=== PATIENT | female | born 1990 | race Caucasian/White ===

== ENCOUNTER → 2021-03-16 09:41 | Outpatient (CLI) | payer OTHER, SELFPAY ==
[2021-03-16 12:04] LABS: HCG Quantitative /Beta subunit 10573 mIU/mL
== END ==
PROVIDERS: Referring Provider Family Medicine; Visit Provider Family Medicine
DX: Z34.01 Encounter for supervision of normal first pregnancy, first trimester (principal)
CPT/HCPCS: 36415; 84702

== ENCOUNTER → 2021-03-18 10:05 | Outpatient (CLI) | payer OTHER, SELFPAY ==
[2021-03-18 11:40] LABS: HCG Quantitative /Beta subunit 16750 mIU/mL
== END ==
PROVIDERS: Referring Provider Family Medicine; Visit Provider Family Medicine
DX: Z34.01 Encounter for supervision of normal first pregnancy, first trimester (principal)
CPT/HCPCS: 36415; 84702

== ENCOUNTER → 2021-03-23 10:08 | Outpatient (CLI) | payer OTHER, SELFPAY ==
[2021-03-23 12:01] LABS: HCG Quantitative /Beta subunit 46895 mIU/mL
== END ==
PROVIDERS: Referring Provider Family Medicine; Visit Provider Family Medicine
DX: Z34.90 Encounter for supervision of normal pregnancy, unspecified, unspecified trimester (principal)
CPT/HCPCS: 36415; 84702

== ENCOUNTER → 2021-04-08 09:51 | Outpatient (CLI) | payer OTHER, SELFPAY ==
[2021-04-08 10:21] LABS: Appearance Urine UA CLEAR; Bilirubin Urine UA NEGATIVE (NEGATIVE); Color Urine UA YELLOW; Glucose Urine UA NEGATIVE (Negative); Ketones Urine UA NEGATIVE (NEGATIVE); Leukocyte Esterase Urine UA TRACE (NEGATIVE); Nitrite Urine UA NEGATIVE (Negative); Occult Blood Urine UA NEGATIVE (Negative); Protein Urine UA NEGATIVE (Negative); Urobilinogen Urine UA 0.2 E.U./dL (0.2)
[2021-04-08 10:22] LABS: Add Manual Diff / Slide Review NO; Basophils Absolute Auto 0 /uL (0-100); Basophils Percent Auto 0.4 % (0-2); Eosinophils Absolute Auto 0 /uL (0-450); Eosinophils Percent Auto 0.4 % (2-4); Hematocrit 37.2 % (36-46); Hemoglobin 13.1 g/dL (12.0-16.0); Lymphocytes Absolute Auto 1200 /uL (1100-4500); Lymphocytes Percent Auto 15.9 % (25-40); Mean Corpuscular HGB Conc 35.1 % (30-36); Mean Corpuscular Hemoglobin 31.2 PG (26-34); Mean Corpuscular Volume 88.8 fL (80-100); Monocytes Absolute Auto 300 /uL (0-900); Monocytes Percent Auto 4.4 % (3-14); Neutrophils Absolute Auto 6100 /uL (1500-7000); Neutrophils Percent Auto 78.9 % (50-75); Platelet Count 230 X10^3/uL (150-400); Red Blood Cell Count 4.19 X10^6/uL (4.0-5.2); Red Cell Distribution Width 12.2 % (11.6-14.8); White Blood Cell Count 7.7 X10^3/uL (4.5-11.0); pH Urine UA 7.5 (4.5-8.0)
[2021-04-08 10:23] LABS: Bacteria Urine None Seen; RBC Urine None Seen (0-5/HPF); WBC Urine None Seen (0-5/HPF)
[2021-04-08 10:26] LABS: Culture Indicated Urine Cult Not Indicated; Urine Comments Microscopic Normal
[2021-04-09 05:37] LABS: RPR Screen Non Reactive (Non Reactive)
[2021-04-09 10:08] LABS: Varicella IgG Antibody 2029 index (Immune >165)
[2021-04-09 20:57] LABS: Hepatitis B Surface Antigen NEGATIVE s/c (NEGATIVE); Rubella Antibody IgG 24.5 IU/mL (>15)
[2021-04-09 21:13] LABS: HIV 1 & 2 Ab/Ag 4th Gen Combo NEGATIVE (NEGATIVE); Hep C Virus Ab w/Reflex Quant NEGATIVE s/c (NEGATIVE)
== END ==
PROVIDERS: PCP Family Medicine; Referring Provider Family Medicine; Visit Provider Family Medicine
DX: Z34.01 Encounter for supervision of normal first pregnancy, first trimester (principal)
CPT/HCPCS: 36415; 80055; 81003; 81015; 86787; 86803; 86850; 86900; 86901; 87077; 87086; 87389

== ENCOUNTER 2022-09-12 12:21 | Emergency (ER) | payer OTHER, SELFPAY ==
[2022-09-12 12:37] VITALS: BP 106/55; PULSE 65; RESP 16; TEMP 36.5; O2SAT 100; BMI 28.1
[2022-09-12 13:47] LABS: Amorphous Sediment Urine 1+; Bacteria Urine Many (>30); Culture Indicated Urine Specimen Cultured; Mucus Urine 1+ (Negative); RBC Urine 1-5/HPF (0-5/HPF); Squamous Epithelial Cell Urine 5-10 /HPF (0-5/HPF); WBC Urine 30-100/HPF (0-5/HPF)
--- NOTE | 2022-09-12 13:51 | ED_ITS ---
HPI - Female Genitourinary <Jerrica Reeves PA-C - Last Filed: 09/12/22 15:37> General Chief complaint: Urogenital-Female Stated complaint: Possible UTI, 7 Wks Time Seen by Provider: 09/12/22 13:37 Mode of arrival: Ambulatory History of Present Illness HPI Narrative: The patient is very pleasant 31 years old female, busy mother of 10 month old toddler, is now 8 weeks ( last MP was in mid July) She noted urinary urgency, frequency and some burnng X 2 days concerned about UTI no flank pain No blood in Urine No fever, n/v/d. Takes MVI Overall describes herself as healthy. Related Data Home Medications Medication Instructions Recorded Confirmed loratadine 10 mg tablet (Claritin) 10 mg PO .PRN 04/01/21 04/08/21 prenat.vits,bradley,iga-xvfu-axivz 1 tab PO DAILY 04/01/21 04/08/21 Previous Rx's Medication Instructions Recorded Lactobacillus rhamnosus GG 10 1 cap PO DAILY #30 caps 09/12/22 billion cell-inulin 200 mg capsule ([employer]) cephalexin 500 mg capsule 500 mg PO TID #21 caps 09/12/22 Allergies Allergy/AdvReac Type Severity Reaction Status Date / Time cat dander Allergy Intermediate Itchy Verified 09/12/22 13:55 throat, runny nose Review of Systems <Jerrica Reeves PA-C - Last Filed: 09/12/22 15:37> Review of Systems Narrative: Pertinent review of systems is otherwise normal unless stated in HPI Patient History <Jerrica Reeves PA-C - Last Filed: 09/12/22 15:37> Medical History Allergic rhinitis Chlamydia (~2018) Surgical History History of root canal procedure (~2020) S/P arthroscopic surgery of right knee (~2007) [place] teeth extracted (~2010) Family History Father Healthy adult Mother Twin , mate liveborn Hyperlipidemia Grandfather Diabetes mellitus Hypertension Myocardial infarction Heart disease H/O heart bypass surgery Grandmother Cancer Lung cancer Smoker Grandfather Healthy adult Grandmother Dementia Family/Other Twin , mate liveborn Sister H/O premature delivery Exam <Jerrica Reeves PA-C - Last Filed: 09/12/22 15:37> Narrative Exam Narrative: GENERAL: 31 year old patient appears stated age. Well-developed patient, in no acute distress. HEAD: Atraumatic. Normocephalic. EYES: Pupils equal round and reactive. Extraocular motions intact. No scleral icterus. No injection or drainage. ENT: Nose without bleeding, purulent drainage. Throat without erythema, tonsillar hypertrophy or exudate. Airway patent. NECK: Trachea midline. Non tender CARDIOVASCULAR: Regular rate and rhythm without murmurs, gallops, or rubs. RESPIRATORY: Clear to auscultation. Breath sounds equal bilaterally. No wheezes, rales, or rhonchi. GASTROINTESTINAL: Abdomen soft, non-tender, nondistended. Genuto urinary : pelvic pressure elicits urge to urnate UA reviewed positive for Leucocytes EXTREMITIES: No edema or joint tenderness. BACK: Nontender without deformity or crepitance. No flank tenderness. NEURO: AOx3. SKIN: No rash or erythema of visible areas Initial Vital Signs Initial Vital Signs: Vital Signs Temperature 97.7 F 09/12/22 12:37 Pulse Rate 65 09/12/22 12:37 Respiratory Rate 16 09/12/22 12:37 Blood Pressure 106/55 L 09/12/22 12:37 Pulse Oximetry 100 09/12/22 12:37 Oxygen Delivery Method 09/12/22 12:37 <Tammy Gomez MD - Last Filed: 09/12/22 18:47> Initial Vital Signs Initial Vital Signs: Vital Signs Temperature 97.7 F 09/12/22 12:37 Pulse Rate 65 09/12/22 12:37 Respiratory Rate 16 09/12/22 12:37 Blood Pressure 106/55 L 09/12/22 12:37 Pulse Oximetry 100 09/12/22 12:37 Oxygen Delivery Method 09/12/22 12:37 Course <Jerrica Reeves PA-C - Last Filed: 09/12/22 15:37> Orders Ordered: ED Orders 09/12/22 13:30 Urine Culture Stat Urine Microscopic Stat 09/12/22 14:05 CBC Auto Diff [Complete Blood Count AUTO DIFF] Stat CMP [Comprehensive Metabolic Panel] Stat Vital Signs Vital signs: Vital Signs - 8 hr 09/12/22 12:37 09/12/22 14:22 Temperature 97.7 F Pulse Rate 65 78 Respiratory Rate 16 16 Blood Pressure 106/55 L 99/58 L Pulse Oximetry 100 98 Oxygen Delivery Method Room Air Room Air <Tammy Gomez MD - Last Filed: 09/12/22 18:47> Orders Ordered: ED Orders 09/12/22 13:30 Urine Culture Stat Urine Microscopic Stat 09/12/22 14:05 CBC Auto Diff [Complete Blood Count AUTO DIFF] Stat CMP [Comprehensive Metabolic Panel] Stat Vital Signs Vital signs: Vital Signs - 8 hr 09/12/22 12:37 09/12/22 14:22 Temperature 97.7 F Pulse Rate 65 78 Respiratory Rate 16 16 Blood Pressure 106/55 L 99/58 L Pulse Oximetry 100 98 Oxygen Delivery Method Room Air Room Air MDM - Female Genitourinary <Jerrica Reeves PA-C - Last Filed: 09/12/22 15:37> Lab Data Result diagrams: 09/12/22 14:05 09/12/22 14:05 Labs: Lab Results 09/12/22 09/12/22 09/12/22 Range/Units 13:30 14:05 14:05 WBC 10.2 (4.5-11.0) X10^3/uL RBC 4.25 (4.0-5.2) X10^6/uL Hgb 12.9 (12.0-16.0) g/dL Hct 37.1 (36-46) % MCV 87.2 (80-100) fL MCH 30.2 (26-34) PG MCHC 34.7 (30-36) % RDW 12.7 (11.6-14.8) % Plt Count 220 (150-400) X10^3/uL Neut % (Auto) 80.0 H (50-75) % Lymph % (Auto) 12.7 L (25-40) % [place] % (Auto) 5.6 (3-14) % Eos % (Auto) 1.2 L (2-4) % Baso % (Auto) 0.5 (0-2) % Neut # (Auto) 8200 H (8224-5461) /uL Lymph # (Auto) 1300 (9675-2983) /uL [place] # (Auto) 600 (0-900) /uL Eos # (Auto) 100 (0-450) /uL Baso # (Auto) 0 (0-100) /uL Sodium 135 L (137-145) mmol/L Potassium 3.8 (3.4-5.1) mmol/L Chloride 107 (98-107) mmol/L Carbon Dioxide 23 (22-32) mmol/L BUN 11 (7-17) mg/dL Creatinine 0.67 (0.52-1.04) mg/dL Estimated GFR > 60 (>60) mL/min BUN/Creatinine Ratio 16.4 (6-22) Glucose 84 (70-100) mg/dL Calcium 8.6 (8.4-10.2) mg/dL Total Bilirubin 0.2 (0.2-1.3) mg/dL AST 16 (14-36) IU/L ALT 12 (<35) IU/L Alkaline Phosphatase 39 (38-126) U/L Total Protein 6.7 (6.3-8.2) g/dL Albumin 3.9 (3.5-5.0) g/dL Globulin 2.8 (1.7-4.1) g/dL Albumin/Globulin Ratio 1.4 (1.0-2.8) Urine RBC 1-5/hpf (0-5/HPF) Urine WBC 30-100/hpf H (0-5/HPF) Ur Squamous Epith Cells 5-10 /hpf H (0-5/HPF) Amorphous Sediment 1+ Urine Bacteria Many (>30) H (None) Urine Mucus 1+ H (Negative) Ur Culture Indicated? Specimen cultured Point of Care Testing Test Results Positive Urine Dip Bedside Urine Glucose Negative Bedside Urine Bilirubin - Negative Bedside Urine Ketone - Negative Urine Specific [place] 1.005 Bedside Urine Occult Blood + Bedside Urine pH 6.0 Bedside Urine Protein - Negative Bedside Urine Urobilinogen - Negative Bedside Urine Nitrite - Negative Bedside Urine Leukocytes + 70 Esterase MDM Narrative Medical decision making narrative: Patient was tested positive for UTI, as well as has confirming sinus symptoms. Multiple etiologies for patient's symptoms considered including: . treatment discussed as well, abx course with keflex She also advised to take probiotics to avoid yeast infection following abx use Patient's symptoms improved over duration of stay . Findings and discharge diagnosis discussed with patient followed by verbalization of understanding Return precautions discussed with patient/family whom verbalize understanding. <Tammy Gomez MD - Last Filed: 09/12/22 18:47> Lab Data Labs: Lab Results 09/12/22 09/12/22 09/12/22 Range/Units 13:30 14:05 14:05 WBC 10.2 (4.5-11.0) X10^3/uL RBC 4.25 (4.0-5.2) X10^6/uL Hgb 12.9 (12.0-16.0) g/dL Hct 37.1 (36-46) % MCV 87.2 (80-100) fL MCH 30.2 (26-34) PG MCHC 34.7 (30-36) % RDW 12.7 (11.6-14.8) % Plt Count 220 (150-400) X10^3/uL Neut % (Auto) 80.0 H (50-75) % Lymph % (Auto) 12.7 L (25-40) % [place] % (Auto) 5.6 (3-14) % Eos % (Auto) 1.2 L (2-4) % Baso % (Auto) 0.5 (0-2) % Neut # (Auto) 8200 H (0964-9599) /uL Lymph # (Auto) 1300 (8958-4441) /uL [place] # (Auto) 600 (0-900) /uL Eos # (Auto) 100 (0-450) /uL Baso # (Auto) 0 (0-100) /uL Sodium 135 L (137-145) mmol/L Potassium 3.8 (3.4-5.1) mmol/L Chloride 107 (98-107) mmol/L Carbon Dioxide 23 (22-32) mmol/L BUN 11 (7-17) mg/dL Creatinine 0.67 (0.52-1.04) mg/dL Estimated GFR > 60 (>60) mL/min BUN/Creatinine Ratio 16.4 (6-22) Glucose 84 (70-100) mg/dL Calcium 8.6 (8.4-10.2) mg/dL Total Bilirubin 0.2 (0.2-1.3) mg/dL AST 16 (14-36) IU/L ALT 12 (<35) IU/L Alkaline Phosphatase 39 (38-126) U/L Total Protein 6.7 (6.3-8.2) g/dL Albumin 3.9 (3.5-5.0) g/dL Globulin 2.8 (1.7-4.1) g/dL Albumin/Globulin Ratio 1.4 (1.0-2.8) Urine RBC 1-5/hpf (0-5/HPF) Urine WBC 30-100/hpf H (0-5/HPF) Ur Squamous Epith Cells 5-10 /hpf H (0-5/HPF) Amorphous Sediment 1+ Urine Bacteria Many (>30) H (None) Urine Mucus 1+ H (Negative) Ur Culture Indicated? Specimen cultured Point of Care Testing Test Results Positive Urine Dip Bedside Urine Glucose Negative Bedside Urine Bilirubin - Negative Bedside Urine Ketone - Negative Urine Specific [place] 1.005 Bedside Urine Occult Blood + Bedside Urine pH 6.0 Bedside Urine Protein - Negative Bedside Urine Urobilinogen - Negative Bedside Urine Nitrite - Negative Bedside Urine Leukocytes + 70 Esterase Discharge Plan Departure Patient Disposition: Home Clinical Impression: Urinary tract infection, Instructions: DI for Urinary Tract Infection (UTI) Activity Restrictions/Additional Instructions: Mrs Burrell is diagnosed with UTI . Diagnosis and treatment explained to pt, she has her questions answered to her apparent satisfaction and patient was instructed to return to the emergency department for any worsening, persistent, or worrisome problems. She is instructed to take medications as directed. The patient instructed to contact her [facility] office in the morning to schedule an appointment in the next 1-2 days. Prescriptions: New cephalexin 500 mg capsule 500 mg PO TID Qty: 21 0RF [employer] [facility] 10 billion cell -200 mg capsule 1 cap PO DAILY Qty: 30 2RF No Action loratadine [Claritin] 10 mg tablet 10 mg PO .PRN prenat.vits,bradley,[id number]-[id number] Tablet 1 tab PO DAILY Referrals: Conor Young MD [Primary Care Provider] - Visit Report Forms: Patient Portal/API <Tammy Gomez MD - Last Filed: 09/12/22 18:47> Cosign ED Attending Cosignature Attestation: I was immediately available in the department for consultation throughout this patient's visit. I agree with documentation as above. Tammy Gomez MD
[2022-09-12 14:10] LABS: Add Manual Diff / Slide Review NO; Basophils Absolute Auto 0 /uL (0-100); Basophils Percent Auto 0.5 % (0-2); Eosinophils Absolute Auto 100 /uL (0-450); Eosinophils Percent Auto 1.2 % (2-4); Hematocrit 37.1 % (36-46); Hemoglobin 12.9 g/dL (12.0-16.0); Lymphocytes Absolute Auto 1300 /uL (1100-4500); Lymphocytes Percent Auto 12.7 % (25-40); Mean Corpuscular HGB Conc 34.7 % (30-36); Mean Corpuscular Hemoglobin 30.2 PG (26-34); Mean Corpuscular Volume 87.2 fL (80-100); Monocytes Absolute Auto 600 /uL (0-900); Monocytes Percent Auto 5.6 % (3-14); Neutrophils Absolute Auto 8200 /uL (1500-7000); Platelet Count 220 X10^3/uL (150-400); Red Blood Cell Count 4.25 X10^6/uL (4.0-5.2); Red Cell Distribution Width 12.7 % (11.6-14.8); White Blood Cell Count 10.2 X10^3/uL (4.5-11.0)
[2022-09-12 14:21] LABS: HEMOLYSIS < 15 (0-50); Sodium 135 mmol/L (137-145)
[2022-09-12 14:22] VITALS: BP 99/58; PULSE 78; RESP 16; O2SAT 98
[2022-09-12 14:22] LABS: Alanine Aminotransferase 12 IU/L (<35); Albumin 3.9 g/dL (3.5-5.0); Albumin Globulin Ratio 1.4 (1.0-2.8); Alkaline Phosphatase 39 U/L (38-126); Aspartate Aminotransferase 16 IU/L (14-36); BUN Creatinine Ratio 16.4 (6-22); Bilirubin Total 0.2 mg/dL (0.2-1.3); Blood Urea Nitrogen 11 mg/dL (7-17); Calcium 8.6 mg/dL (8.4-10.2); Carbon Dioxide 23 mmol/L (22-32); Chloride 107 mmol/L (98-107); Estimated Glomerular Filt Rate > 60 mL/min (>60); Globulin 2.8 g/dL (1.7-4.1); Glucose 84 mg/dL (70-100); Potassium 3.8 mmol/L (3.4-5.1); Total Protein 6.7 g/dL (6.3-8.2)
== END 2022-09-12 14:23 | disposition home or self-care (01) ==
PROVIDERS: Emergency Medicine; Emergency Provider Physician Assistant Medical; PCP Family Medicine
DX: O23.41 Unspecified infection of urinary tract in pregnancy, first trimester (principal); N39.0 Urinary tract infection, site not specified; Z3A.08 8 weeks gestation of pregnancy
CPT/HCPCS: 36415; 80053; 81003; 81015; 81025; 85025; 87086; 99283

== ENCOUNTER → 2022-10-20 15:34 | Outpatient (CLI) | payer OTHER, SELFPAY ==
[2022-10-20 16:42] LABS: Add Manual Diff / Slide Review NO; Basophils Absolute Auto 0 /uL (0-100); Basophils Percent Auto 0.3 % (0-2); Eosinophils Absolute Auto 100 /uL (0-450); Eosinophils Percent Auto 1.5 % (2-4); Hematocrit 35.1 % (36-46); Hemoglobin 12.5 g/dL (12.0-16.0); Lymphocytes Absolute Auto 1300 /uL (1100-4500); Lymphocytes Percent Auto 15.1 % (25-40); Mean Corpuscular HGB Conc 35.6 % (30-36); Mean Corpuscular Volume 87.1 fL (80-100); Monocytes Absolute Auto 400 /uL (0-900); Monocytes Percent Auto 4.5 % (3-14); Neutrophils Absolute Auto 6600 /uL (1500-7000); Neutrophils Percent Auto 78.6 % (50-75); Platelet Count 244 X10^3/uL (150-400); Red Blood Cell Count 4.03 X10^6/uL (4.0-5.2); White Blood Cell Count 8.4 X10^3/uL (4.5-11.0)
[2022-10-21 17:33] LABS: Hepatitis B Surface Antigen NEGATIVE s/c (NEGATIVE); Rubella Antibody IgG 19.1 IU/mL (>15)
[2022-10-21 17:39] LABS: HIV 1 & 2 Ab/Ag 4th Gen Combo NEGATIVE (NEGATIVE); Hep C Virus Ab w/Reflex Quant NEGATIVE s/c (NEGATIVE)
[2022-10-22 10:03] LABS: Varicella IgG Antibody 1469 index (Immune >165)
[2022-10-22 11:09] LABS: RPR Screen Non Reactive (Non Reactive)
== END ==
PROVIDERS: PCP Family Medicine; Referring Provider Obstetrics & Gynecology; Visit Provider Obstetrics & Gynecology
DX: Z34.81 Encounter for supervision of other normal pregnancy, first trimester (principal)
CPT/HCPCS: 36415; 80055; 86787; 86803; 86850; 86900; 86901; 87389

== ENCOUNTER → 2022-11-16 17:33 | Outpatient (CLI) | payer OTHER, SELFPAY ==
[2022-11-16 22:01] LABS: Urine N gonorrhoeae NOT DETECTED
[2022-11-16 22:07] LABS: Urine Chlamydia NOT DETECTED
== END ==
PROVIDERS: PCP Family Medicine; Visit Provider Obstetrics & Gynecology
DX: Z11.3 Encounter for screening for infections with a predominantly sexual mode of transmission (principal); Z34.82 Encounter for supervision of other normal pregnancy, second trimester; Z3A.16 16 weeks gestation of pregnancy
CPT/HCPCS: 87491; 87591

== ENCOUNTER → 2022-12-14 15:15 | Outpatient (CLI) | payer OTHER, SELFPAY ==
--- NOTE | 2022-12-14 15:16 | DI.US.S_ITS ---
PROCEDURE: US OB >= 14 WEEKS FETUS INDICATIONS: ANATOMY OUTSIDE/PRIOR DATING DATA: Last menstrual period (LMP): 07/24/2022. LMP-based estimated date of delivery (CARMEN): 04/30/2023. First dating scan (date and location): 09/30/2022. Estimated date of delivery (CARMEN) from first dating scan: 05/04/2023 The calculations are made using the working CARMEN of 04/30/2023. TECHNIQUE: Real-time scanning was performed of the fetus, with image documentation and biometric measurements. Endovaginal scannin dictated COMPARISON: None. FINDINGS: General: A single living intrauterine gestation is present. Presentation: Variable Placenta: Placental position is posterior fundal, without previa. Amniotic fluid index: 18.2 cm, normal range is 5-24 cm. Single deepest vertical pocket is 6.3 cm. heart rate: 141 beats per minute. Maternal cervical canal: 5.9 cm long. Normal lower limit is 2.5 cm. biometrics: Biparietal diameter: 4.5 cm, 19 weeks, 5 days. Head circumference: 16.7 cm, 19 weeks, 3 days. 7% Abdominal circumference: 15.9 cm, 21 weeks, 0 day. Femur length: 3.3 cm, 20 weeks, 2 days. Clinically estimated gestational age: 20 weeks, 3 days. Composite gestational age from present scan: 20 weeks, 1 day. Estimated weight and percentile: 358 g, 49%. Anatomic survey: Neuro: Ventricles are non-dilated at less than 10 mm. Cisterna magna is normal at 3-11 mm. Cerebellum is normal in size and morphology. Nuchal skin fold: Normal at less than 6 mm between 14-21 weeks gestational age. Face: Nose and lips, facial profile are normal. Spine: No evidence for spina bifida. Heart: 4-chambered heart is present, with normal ventricular outflow tracts. Diaphragm: Diaphragm is intact. Stomach: Left-sided stomach is present. Kidneys: No hydronephrosis. Normal is less than 5 mm in 2nd trimester, less than 7 mm in 3rd trimester. Cord: 3-vessel cord is seen. There is probable superior edge marginal placental cord insertion approximately 0.8 cm from placental edge. Bladder: Normal in size. Extremities: All 4 extremities identified. IMPRESSION: 1. Single live intrauterine gestation with fetus in variable presentation. heart rate is 141 beats per minute. Normal amount of amniotic fluid. Overall normal growth with estimated weight at 49%. S occur inference measurement is at 7th percentile. 2. Marginal placental cord insertion as above. Rest of the anatomic survey is normal. We strive to produce accurate, complete, and clear reports of imaging services. To assist us in improving patient care, this report was composed using standard report templates and voice recognition software. Therefore, it may contain abnormal punctuation, insertions and/or omissions. Occasional wrong-word or sound-alike substitutions may occur. Though we review the report and make efforts to correct it, we do recommend that the report be read carefully in proper context to recognize any text inaccuracies. Dictated by: Danny Carson M.D. on 12/15/2022 at 8:45 Approved by: Danny Carson M.D. on 12/15/2022 at 8:48
== END ==
PROVIDERS: PCP Family Medicine; Referring Provider Obstetrics & Gynecology; Visit Provider Obstetrics & Gynecology
DX: Z34.82 Encounter for supervision of other normal pregnancy, second trimester (principal); Z3A.20 20 weeks gestation of pregnancy
CPT/HCPCS: 76811

== ENCOUNTER → 2023-01-28 11:58 | Outpatient (CLI) | payer OTHER, SELFPAY ==
[2023-01-28 14:49] LABS: Hematocrit 34.1 % (36-46); Hemoglobin 11.9 g/dL (12.0-16.0)
[2023-01-28 15:27] LABS: GTT (PREG) 1 Hour PP 50gm Dose 76 mg/dL (76-139)
== END ==
PROVIDERS: PCP Family Medicine; Referring Provider Obstetrics & Gynecology; Visit Provider Obstetrics & Gynecology
DX: Z34.82 Encounter for supervision of other normal pregnancy, second trimester (principal); Z3A.26 26 weeks gestation of pregnancy
CPT/HCPCS: 36415; 82950; 85014; 85018

== ENCOUNTER → 2023-04-15 15:43 | Outpatient (CLI) | payer OTHER, SELFPAY ==
[2023-04-16 14:58] LABS: Strep Grp B PCR NEG for Grp B Strep
== END ==
PROVIDERS: PCP Family Medicine; Visit Provider Obstetrics & Gynecology
DX: Z34.83 Encounter for supervision of other normal pregnancy, third trimester (principal); Z3A.37 37 weeks gestation of pregnancy
CPT/HCPCS: 87653

== ENCOUNTER 2023-05-06 13:50 | Outpatient (CLI) | payer OTHER, SELFPAY | END 2023-05-06 14:40 | disposition home or self-care (01) | LOC: LABOR 14:07 → OB 05-12 14:54 | PROVIDERS: PCP Family Medicine; Referring Provider Obstetrics & Gynecology; Visit Provider Obstetrics & Gynecology | DX: O48.0 Post-term pregnancy (principal); Z3A.40 40 weeks gestation of pregnancy | CPT/HCPCS: 59025; G0378; G0379 ==

== ENCOUNTER 2023-05-11 19:53 | Outpatient (CLI) | payer OTHER, SELFPAY ==
--- NOTE | 2023-05-11 20:46 | P.TNLD_ITS ---
Visit Information Visit Information Date of evaluation: 05/11/23 Primary OB Provider: Michele Fong On-call OB Provider: Magali Salazar Reason for Evaluation: Yes non-stress test Comments/Additional reasons for admission: post dates Vital Signs Vital Signs: BP102/65 T 36.3 [facility] Medical History (Updated 05/11/23 @ 20:48 by Magali Salazar MD) Allergic rhinitis Chlamydia (~2018) Surgical History History of root canal procedure (~2020) S/P arthroscopic surgery of right knee (~2007) [place] teeth extracted (~2010) Family History (Updated 09/27/22 @ 09:45 by Yanna Guerrier RN) Father Healthy adult Mother Twin , mate liveborn Hyperlipidemia Grandfather Diabetes mellitus Hypertension Myocardial infarction Heart disease H/O heart bypass surgery Grandmother Cancer Lung cancer Smoker Grandfather Prostate cancer Grandmother Dementia Family/Other Twin , mate liveborn Sister Premature Social History (System 09/10/22 @ 09:50 by Sharmila Fox) marital status: number of children: 1 household members: spouse lives independently: Yes caregiver/support person: Yes housing: house pets and animals: No education level: master's degree ([employer] Master's : online full- time [employer]) 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, 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[employer]) current occupational exposures/hazards: No wing/tenriism: [employer] special wing needs: No travel history: recent (Domestic only) seatbelt use: always helmet use: Yes water heater temp set < 120 deg: Yes working smoke detector in home: Yes fire extinguisher in home: Yes carbon monox detector in home: Yes firearms in home: Yes do you feel safe at home: Yes Smoking Status: Never smoker second hand exposure: No alcohol intake: former (2-3/week when not ) substance use type: does not use during the past year weight has: other (Gave 10 months ago) well-balanced diet: daily or most days daily servings fruits/ve or more times/day caffeine: Yes (Decaf while , usually 1 cup coffee/day when not ) Type(s) of exercise: walking frequency: daily Evaluation Evaluation Baseline heart rate: 120 Variability: Moderate (11-25) monitor accelerations: Present Monitor Decelerations: Absent Contraction Frequency (minutes): 10 Uterine Contraction Intensity: Mild Category of Tracing: Reactive Status: Category l Diagnosis, Plan/Disposition Final Diagnosis (1) 41 weeks gestation of : Status: Acute Plan/Disposition Plan: Patient was brought in for induction for postdates however due to staffing decision was made to send patient home after reactive NST to return in a.m. for induction. OB Disposition: home
== END 2023-05-11 20:55 | disposition home or self-care (01) ==
LOC: OB 05-12 14:47
PROVIDERS: PCP Family Medicine; Referring Provider Obstetrics & Gynecology; Visit Provider Obstetrics & Gynecology
DX: O48.0 Post-term pregnancy (principal); Z3A.41 41 weeks gestation of pregnancy
CPT/HCPCS: 59025; G0378; G0379

== ENCOUNTER 2023-05-12 06:22 | Inpatient (IN) | payer OTHER, SELFPAY ==
[2023-05-12 06:54] VITALS: BP 102/65
[2023-05-12 07:16] LABS: Add Manual Diff / Slide Review NO; Basophils Absolute Auto 0 /uL (0-100); Basophils Percent Auto 0.5 % (0-2); Eosinophils Absolute Auto 100 /uL (0-450); Eosinophils Percent Auto 0.7 % (2-4); Hematocrit 31.5 % (36-46); Hemoglobin 11.1 g/dL (12.0-16.0); Lymphocytes Absolute Auto 1000 /uL (1100-4500); Lymphocytes Percent Auto 11.2 % (25-40); Mean Corpuscular HGB Conc 35.3 % (30-36); Mean Corpuscular Hemoglobin 30.6 PG (26-34); Mean Corpuscular Volume 86.9 fL (80-100); Monocytes Absolute Auto 500 /uL (0-900); Monocytes Percent Auto 6.3 % (3-14); Neutrophils Absolute Auto 7000 /uL (1500-7000); Neutrophils Percent Auto 81.3 % (50-75); Platelet Count 220 X10^3/uL (150-400); Red Blood Cell Count 3.62 X10^6/uL (4.0-5.2); Red Cell Distribution Width 13.3 % (11.6-14.8); White Blood Cell Count 8.6 X10^3/uL (4.5-11.0)
--- NOTE | 2023-05-12 07:52 | P.HPOB_ITS ---
OB HPI Date/Time Date of admission: 05/12/23 Date Patient Seen: 05/12/23 Time Patient Seen: 07:53 History of Present Condition Chief complaint: IUP, 41+4 wks EGA, GBS neg, Hx of precip delivery : 2 Para: 1 Estimated Gestational Age (weeks): 41+5 Narrative: Kelsy Burrell is a 32 year old admitted now at 41+5 wks EGA due to pos t-datism. Patient's course has been unremarkable with solid early dating and appropriate milestones throughout. Patient declined cell free DNA testing as well as AFP testing and does not want to know the gender until the baby is born. GBS is negative. Indications Indication for induction OB: post dates History of Present care: good care Dating criteria: LMP confirmed by 1st trimester US Ultrasounds: normal 1st trimester US and normal mid trimester US Obstetrical complications: none Medical complications: none Preadmission Labs Blood type: B (+) positive -: Antibody screen: negative, GBS status: negative, HBsAG: negative, HIV: negative and RPR/VDLR: negative -: Chlamydia screen: not detected and Gonorrhea screen: not detected -: Rubella: immune and Varicella: immune HCT: 31.5 HCAB: negative PAP: Normal Cell-free DNA: Declined Evaluation Evaluation Baseline heart rate: 120 Variability: Moderate (11-25) monitor accelerations: Present Monitor Decelerations: Absent Contraction Frequency (minutes): 4 Uterine Contraction Intensity: Moderate Category of Tracing: Reactive Status: Category l Dilation (cm): 0 Effacement (%): 50 Dilation: Closed Effacement: >/=80% station: -2 Position of cervix: posterior Consistency: firm Rasmussen score: 4 [facility] Medical History (Updated 05/11/23 @ 20:48 by Magali Salazar MD) Allergic rhinitis Chlamydia (~2018) Surgical History History of root canal procedure (~2020) S/P arthroscopic surgery of right knee (~2007) [place] teeth extracted (~2010) Family History (Updated 09/27/22 @ 09:45 by Yanna Guerrier RN) Father Healthy adult Mother Twin , mate liveborn Hyperlipidemia Grandfather Diabetes mellitus Hypertension Myocardial infarction Heart disease H/O heart bypass surgery Grandmother Cancer Lung cancer Smoker Grandfather Prostate cancer Grandmother Dementia Family/Other Twin , mate liveborn Sister Premature Social History (System 09/10/22 @ 09:50 by Sharmila Fox) marital status: number of children: 1 household members: spouse lives independently: Yes caregiver/support person: Yes housing: house pets and animals: No education level: master's degree ([employer] Master's : online full- time [employer]) 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, 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[employer]) current occupational exposures/hazards: No wing/uatsdin: [employer] special wing needs: No travel history: recent (Domestic only) seatbelt use: always helmet use: Yes water heater temp set < 120 deg: Yes working smoke detector in home: Yes fire extinguisher in home: Yes carbon monox detector in home: Yes firearms in home: Yes do you feel safe at home: Yes Smoking Status: Never smoker second hand exposure: No alcohol intake: former (2-3/week when not ) substance use type: does not use during the past year weight has: other (Gave 10 months ago) well-balanced diet: daily or most days daily servings fruits/ve or more times/day caffeine: Yes (Decaf while , usually 1 cup coffee/day when not ) Type(s) of exercise: walking frequency: daily Meds Home Medications and Allergies Home Medications Medication Instructions Recorded Confirmed Type loratadine 10 mg tablet (Claritin) 10 mg PO .PRN 04/01/21 05/12/23 History prenat.vits,bradley,zra-iift-wysnj 1 tab PO DAILY 04/01/21 05/12/23 History Allergies Allergy/AdvReac Type Severity Reaction Status Date / Time cat dander Allergy Intermediate Itchy Verified 05/06/23 14:54 throat, runny nose Review of Systems Review of Systems Narrative: Problem-specific ROS positives included in HPI OB Exam Vital signs Blood Pressure: 103/60 Pulse Rate: 83 Respiratory Rate: 16 Temperature: 96.4 F HENMT Head: normal to inspection, normocephalic and atraumatic Eyes General: appearance normal, both eyes and all related structures Resp Effort & Inspection: normal respiratory effort and able to speak in complete sentences Auscultation: clear to auscultation bilaterally Cardio Rate: regular rate Rhythm: regular rhythm Heart Sounds: S1 normal, S2 normal and no murmurs Extremities Lower extremity: Yes normal to inspection GI Inspection: normal to inspection Palpation: Yes soft and Yes no hepatosplenomegaly Uterus Location (Fundal Height): 38 Estimated Weight (lbs): 8 Objective Labs 05/12/23 07:00 Labs: Laboratory Results - last 24 hr 05/12/23 07:00 WBC 8.6 RBC 3.62 L Hgb 11.1 L Hct 31.5 L MCV 86.9 MCH 30.6 MCHC 35.3 RDW 13.3 Plt Count 220 Neut % (Auto) 81.3 H Lymph % (Auto) 11.2 L [place] % (Auto) 6.3 Eos % (Auto) 0.7 L Baso % (Auto) 0.5 Neut # (Auto) 7000 Lymph # (Auto) 1000 L [place] # (Auto) 500 Eos # (Auto) 100 Baso # (Auto) 0 Assessment and Plan Assessment and Plan Assessment and Plan narrative: ASSESSMENT 1. Intrauterine , 40 1+5 weeks gestational age 2. GBS negative status PLAN 1. Admit for ripening and induction due to post dates 2. See admission orders
[2023-05-12] MEDS: miSOPROStoL 25 MCG TABLET 50 MCG PO ×2 (07:54→12:07)
[2023-05-12 13:48] VITALS: BP 103/60; PULSE 83; RESP 16; TEMP 35.8
--- NOTE | 2023-05-12 17:01 | P.PNOB_ITS ---
Date/Time Date Patient Seen: 05/12/23 Time Patient Seen: 17:01 Pain Control Pain control: tolerating well Pelvic Exam Dilation (cm): 1.5 Effacement (%): 50 station: -2 Amniotic membrane status: Intact Contractions Contractions on admission: none Monitor mode: External Contraction pattern: Irregular Contraction phase: Resting Contraction intensity: Moderate Status status: Category l Heart Rate Baseline: 120 Monitor Accelerations: Episodic Monitor Decelerations: Absent Monitor Variability: Moderate Assessment and Plan Assessment: other (Cervical ripening ongoing) Comments: Patient will have Cervidil inserted after dinner this evening or if contractions are too frequent for cervidil, will initiate low dose pitocin augmentation inste ad.
[2023-05-12] MEDS: LACTATED RINGERS 1,000 ML 999 ML IV (19:11)
[2023-05-12] MEDS: OXYTOCIN PREMIX 30 UNIT/500 ML PLAST..BAG IV (20:17)
[2023-05-12] MEDS: LIDOCAINE 1% 20 ML INJ (22:00)
--- NOTE | 2023-05-12 22:23 | PM.OBPRVD ---
Events: Other (Post-dates) Labor & Delivery Delivery date: 05/12/23 Intrapartal Events: None Cervical ripening method: per misoprostal protocol Induction method: per pitocin protocol Delivery monitor: external FHT and external uterine Route of delivery: Episiotomy description: None L&D Laceration Description: Perineal - 2nd Degree Delivery repair: chromic Estimated blood loss (mL): 200 Complications: None Narrative: Following a brief 2nd stage, the patient delivered spontaneously a viable female over intact perineum. Nuchal cord was noted but reduced only after the had been delivered. Skin to skin contact was initiated immediately and delayed cord clamping performed. Once the cord was doubly clamped and cut by the father, a cord blood sample was obtained for routine studies. The placenta was easily delivered by gentle traction on umbilical cord and suprapubic countertraction. Intravenous Pitocin was initiated immediately after delivery of the placenta and post delivery bleeding was minimal. Inspection of placenta revealed an intact placenta with a central insertion of a three-vessel cord. Inspection of the perineum showed a simple second-degree perineal laceration which was repaired with 2-0 chromic catgut suture in the usual manner under local anesthesia with 1% lidocaine. The repair was well tolerated and the sponge and needle counts were correct at the end of the delivery process. Mother and baby are also doing well at the conclusion of the delivery process. Baby 1: gender: Female Presentation: vertex Position: Left Occiput Anterior Placenta delivery description: Spontaneous Cord Vessel Description: 3 Vessels and Nuchal Cord score (1 min): 9 score (5 min): 9 weight: 7 lb 7.685 oz Plan for aftercare: Routine care
[2023-05-13] MEDS: DERMOPLAST SPRAY 20% 60 ML 1 SPRAY TOP (00:18)
[2023-05-13] MEDS: IBUPROFEN 600 MG TABLET PO ×3 (00:18→14:40)
[2023-05-13] MEDS: ACETAMINOPHEN 325 MG TABLET 650 MG PO ×3 (00:19→14:41)
[2023-05-13 06:21] LABS: Add Manual Diff / Slide Review NO; Basophils Absolute Auto 0 /uL (0-100); Basophils Percent Auto 0.3 % (0-2); Eosinophils Absolute Auto 0 /uL (0-450); Eosinophils Percent Auto 0.4 % (2-4); Hematocrit 31.2 % (36-46); Hemoglobin 10.8 g/dL (12.0-16.0); Lymphocytes Absolute Auto 1400 /uL (1100-4500); Lymphocytes Percent Auto 10.2 % (25-40); Mean Corpuscular HGB Conc 34.6 % (30-36); Mean Corpuscular Volume 86.6 fL (80-100); Monocytes Absolute Auto 1000 /uL (0-900); Monocytes Percent Auto 7.1 % (3-14); Neutrophils Absolute Auto 11100 /uL (1500-7000); Platelet Count 205 X10^3/uL (150-400); White Blood Cell Count 13.6 X10^3/uL (4.5-11.0)
[2023-05-13] MEDS: DOCUSATE 100 MG CAPSULE PO (08:39)
--- NOTE | 2023-05-13 12:52 | PM.OBDS.1 ---
Discharge Providers Provider Date of admission: 05/12/23 06:22 Discharge Date: 05/13/23 Primary care physician: Conor Young MD Consults: 05/12/23 06:51 Consult to Anesthesiology Urgent Comment: Consulting Provider: Michele Fong Reason for consultation: Epidural 05/13/23 22:21 Consult to Trade Facilitator Routine Comment: Discharge provider: Micheel Fong MD Summary Hospital Course Date Patient Seen: 05/13/23 Time Patient Seen: 15:52 Diagnoses: Intrauterine gestation, 40 1+5 weeks gestational age, delivered by spontaneous vaginal Hospital Course: Kelsy was admitted on the morning of 05/12/2023 and received 2 doses of oral Cytotec. Whether her cervix had changed little by late afternoon, she was filemon to actively to have a 3rd dose of misoprostol therefore Pitocin augmentation was initiated instead. Once she entered the active stage labor, she progressed very rapidly and on the evening of 05/12/2023, she delivered spontaneously a viable female infant with Apgars of 9/9, and a weight of 3393 g (7 lb 7.7 oz). Following delivery both mother and baby have done extremely well with the mother experiencing prompt return of bowel and bladder function, she is ambulating independently, tolerating regular diet, and her pain is well relieved with oral pain medications. She will be discharged at this time to home in an afebrile normotensive condition after counseling regarding precautionary symptoms, limitations of activity, medications, and plans for follow-up which will be in 6 weeks. Patient will resume all of her pre delivery medications and will use sjkx-sws-mcjimfm ibuprofen and/or Tylenol as needed for pain relief. Peripartum Data Infant Delivery Method: Natural Vaginal Laceration Description: Perineal - 2nd Degree Episiotomy description: None complications: none [place] 1: Gender: Female Disposition of : home Status at Discharge Cognitive/behavioral status at discharge: oriented Functional status at discharge: independent ambulation Overall status at discharge: patient is progressing back to baseline Time Spent with Patient Time attestation: Total time spent providing and/or coordinating discharge services: Time spent: Less than 30 minutes Objective Labs 05/13/23 06:08 Labs: Laboratory Results - last 24 hr 05/13/23 06:08 WBC 13.6 H D RBC 3.60 L Hgb 10.8 L Hct 31.2 L MCV 86.6 MCH 30.0 MCHC 34.6 RDW 13.0 Plt Count 205 Neut % (Auto) 82.0 H Lymph % (Auto) 10.2 L [place] % (Auto) 7.1 Eos % (Auto) 0.4 L Baso % (Auto) 0.3 Neut # (Auto) 27291 H Lymph # (Auto) 1400 [place] # (Auto) 1000 H Eos # (Auto) 0 Baso # (Auto) 0 Exam Const General: cooperative and comfortable Nutritional Appearance: average body habitus Orientation: alert and oriented x3 HENMT Head: normal to inspection, atraumatic and abrasion Ears: hearing grossly normal bilaterally Face and sinus: face symmetric Eyes General: appearance normal, both eyes and all related structures Conjunctivae: conjunctivae normal Sclera: sclerae normal EOM: EOM intact bilaterally Neck Neck: normal visual inspection Resp Effort & Inspection: normal respiratory effort and able to speak in complete sentences GI Inspection: normal to inspection Palpation: soft and no hepatosplenomegaly External Female Exam: other (No significant bleeding noted) Extrem General: no calf tenderness Psych Appearance: grossly normal Mental Status: mental status grossly normal Speech and Movement: speech and movement normal Mood: congruent mood Affect: normal affect Attitude: cooperative Thought Process: normal Thought Content: normal Judgment: judgment good Discharge Plan Discharge Plan Patient Disposition: Home Provider Discharge Comment: Please review the written instructions you received when you were discharged from the hospital. Your follow-up appointment will be scheduled for 6 weeks following your delivery and I look forward to seeing you then. If however you have any issues, concerns, or questions which need to be addressed before that visit, please contact me either through the office phone at [phone], or via the patient portal. Discharge orders & Medications Prescriptions: Continued loratadine [Claritin] 10 mg tablet 10 mg PO .PRN prenat.vits,bradley,uvq-ddas-bwfoe Tablet 1 tab PO DAILY Follow up/Referrals: Michele Fong MD [Physician] - 06/23/23 11:30 am Discharge Health Status Multidrug resistant organism: No MDRO Diet/Activity/Treatments Diet: Diet as Tolerated Activity: As tolerated Other treatments: Nzvp-cup-psocbjr Tylenol and/or ibuprofen may be used for pain relief. Yidk-kwo-lmaeanr stool softeners and/or MiraLax may be used as needed for constipation. Skin/Wound/Dressing Care Report to your healthcare provider any signs of infection, such as:: chills, fever, increased pain, unusual drainage and unusual redness Dressing: N/A Visit Report/Discharge Packet Instructions: DI for Labor and Delivery, Vaginal , DI for and Nipple Soreness Stand Alone Forms: Patient Portal/API Discharge Data Primary Care Provider: Conor Young
[2023-05-13 17:13] VITALS: BP 100/55; PULSE 64; RESP 16; TEMP 37.1
== END 2023-05-13 18:05 | disposition home or self-care (01) | DRG 807 ==
PROVIDERS: Admitting Provider Obstetrics & Gynecology; PCP Family Medicine; Referring Provider Obstetrics & Gynecology; Visit Provider Obstetrics & Gynecology
DX: O48.0 Post-term pregnancy (principal); Z37.0 Single live birth; Z3A.41 41 weeks gestation of pregnancy; Z67.20 Type B blood, Rh positive; O70.1 Second degree perineal laceration during delivery
CPT/HCPCS: 36415; 59050; 59200; 59400; 85025; 86850; 86900; 86901; G0379; J2590

== ENCOUNTER 2023-05-20 06:46 | Emergency (ER) | payer OTHER, SELFPAY ==
[2023-05-20 06:49] VITALS: BP 106/70; PULSE 80; RESP 18; TEMP 35.9; O2SAT 97; BMI 31.1
--- NOTE | 2023-05-20 07:17 | ED.EYEPROB ---
HPI - Eye Problem General Chief complaint: Eye Problems Stated complaint: pink eye Time Seen by Provider: 05/20/23 07:09 Mode of arrival: Family Vehicle History of Present Illness HPI Narrative: Patient 32-year-old healthy female presents today with right eye irritation. She says it started yesterday last night she woke up frequently unable to open her eye due to the crusting over. No fever or chills. She is been wiping it. She has an and toddler changing diapers frequently she thinks maybe there was some contamination point. No other symptoms. She denies wearing any corrective lenses. Related Data Home Medications Medication Instructions Recorded Confirmed loratadine 10 mg tablet (Claritin) 10 mg PO .PRN 04/01/21 05/12/23 prenat.vits,rbadley,icy-ufno-ixojx 1 tab PO DAILY 04/01/21 05/12/23 Previous Rx's Medication Instructions Recorded polymyxin B sulfate 10,000 2 drp EYE-RIGHT Q4HRWA 7 days #10 05/20/23 unit-trimethoprim 1 mg/mL eye mL drops (Polytrim) Allergies Allergy/AdvReac Type Severity Reaction Status Date / Time cat dander Allergy Intermediate Itchy Verified 05/06/23 14:54 throat, runny nose Review of Systems Review of Systems ROS Unobtainable: All systems reviewed & are unremarkable except as noted in HPI and below Patient History Medical History Allergic rhinitis Chlamydia (~2018) Surgical History History of root canal procedure (~2020) S/P arthroscopic surgery of right knee (~2007) [place] teeth extracted (~2010) Family History Father Healthy adult Mother Twin , mate liveborn Hyperlipidemia Grandfather Diabetes mellitus Hypertension Myocardial infarction Heart disease H/O heart bypass surgery Grandmother Cancer Lung cancer Smoker Grandfather Prostate cancer Grandmother Dementia Family/Other Twin , mate liveborn Sister Premature Social History marital status: number of children: 1 household members: spouse lives independently: Yes caregiver/support person: Yes housing: house pets and animals: No education level: master's degree ([employer] Master's : online full-time [employer]) 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, 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[employer]) current occupational exposures/hazards: No wing/mandaeism: Druze special wing needs: No travel history: recent (Domestic only) seatbelt use: always helmet use: Yes water heater temp set < 120 deg: Yes working smoke detector in home: Yes fire extinguisher in home: Yes carbon monox detector in home: Yes firearms in home: Yes do you feel safe at home: Yes Smoking Status: Never smoker second hand exposure: No alcohol intake: former (2-3/week when not ) substance use type: does not use during the past year weight has: other (Gave 10 months ago) well-balanced diet: daily or most days daily servings fruits/ve or more times/day caffeine: Yes (Decaf while , usually 1 cup coffee/day when not ) Type(s) of exercise: walking frequency: daily Smoking Status: Never smoker Exam Initial Vital Signs Initial Vital Signs: Vital Signs Temperature 96.7 F L 05/20/23 06:49 Pulse Rate 80 05/20/23 06:49 Respiratory Rate 18 05/20/23 06:49 Blood Pressure 106/70 05/20/23 06:49 Pulse Oximetry 97 05/20/23 06:49 Oxygen Delivery Method Room Air 05/20/23 06:49 GENERAL: Well-appearing, well-nourished and in no acute distress. EYE: Right eye injected conjunctiva with gross drainage no surrounding periorbital erythema or edema. Extraocular muscles intact bilaterally PERRL bilaterally CARDIOVASCULAR: peripheral pulses in tact, cap refill <2 sec RESPIRATORY: No respiratory distress, speaks in full sentences without difficulty EXTREMITIES: Normal range of motion, no clubbing or edema. Neurovascularly intact NEUROLOGICAL: Cranial nerves II through XII grossly intact. Normal gait and speech. SKIN: Warm, dry, no petechiae, no rashes or lesions. Course Vital Signs Vital signs: Vital Signs - 8 hr 05/20/23 06:49 Temperature 96.7 F L Pulse Rate 80 Respiratory Rate 18 Blood Pressure 106/70 Pulse Oximetry 97 Oxygen Delivery Method Room Air MDM - Eye Problem MDM Narrative Medical decision making narrative: Patient healthy 32-year-old female presents today with symptoms consistent with a conjunctivitis. She is afebrile no evidence of also or orbital cellulitis. Denies any significant pruritus unlikely to be corneal abrasion or foreign body. Started her on antibiotics. Discharge Plan Departure Patient Disposition: Home Clinical Impression: Acute conjunctivitis, right eye Instructions: Conjunctivitis Activity Restrictions/Additional Instructions: *You have been diagnosed with right eye conjunctivitis *What to do: Continue to wipe eye as needed *Continue to take medications as directed Polytrim 2 drops right eye every 4 hours while awake for 1 week *Follow up with your primary care provider in 2-3 days or call [phone] *Return to ER if you should have increasing redness on the outside [or] any new, worsening or concerning symptoms Prescriptions: New polymyxin B sulf-trimethoprim [Polytrim] 10,000 unit- 1 mg/mL drops 2 drp EYE-RIGHT Q4HRWA 7 Days Qty: 10 0RF No Action loratadine [Claritin] 10 mg tablet 10 mg PO .PRN prenat.vits,bradley,and-phjn-jngsg Tablet 1 tab PO DAILY Referrals: Conor Young MD [Primary Care Provider] - Stand Alone Forms: Patient Portal/API
== END 2023-05-20 07:31 | disposition home or self-care (01) ==
PROVIDERS: Emergency Provider Emergency Medicine; PCP Family Medicine
DX: H10.31 Unspecified acute conjunctivitis, right eye (principal)
CPT/HCPCS: 99281

== ENCOUNTER 2024-08-16 20:02 | Emergency (ER) | payer OTHER, SELFPAY ==
[2024-08-16] VITALS (8 sets, daily range): BP systolic 90–128; BP diastolic 55–67; PULSE 57–67; RESP 14–18; TEMP 36.9; O2SAT 97–100; BMI 31.3
--- NOTE | 2024-08-16 20:23 | DI.RAD.S_ITS ---
PROCEDURE: XR CHEST 1V INDICATIONS: chest pain TECHNIQUE: One view of the chest was acquired. COMPARISON: None. FINDINGS: Surgical changes and devices: None. Lungs and pleura: Lungs are clear. No pleural effusions or pneumothorax. Mediastinum: Mediastinal contours appear normal. Heart size is normal. Bones and chest wall: No suspicious bony lesions. Overlying soft tissues appear unremarkable. IMPRESSION: No acute cardiopulmonary pathology. Dictated by: Danny Carson M.D. on 08/16/2024 at 20:45 Approved by: Danny Carson M.D. on 08/16/2024 at 20:46
--- NOTE | 2024-08-16 20:23 | EKG_ITS ---
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
[2024-08-16 20:46] LABS: Add Manual Diff / Slide Review NO; Basophils Absolute Auto 0 /uL (0-100); Basophils Percent Auto 0.5 % (0-2); Eosinophils Absolute Auto 100 /uL (0-450); Eosinophils Percent Auto 1.6 % (2-4); Hematocrit 37.4 % (36-46); Hemoglobin 13.2 g/dL (12.0-16.0); Lymphocytes Absolute Auto 1800 /uL (1100-4500); Lymphocytes Percent Auto 29.4 % (25-40); Mean Corpuscular HGB Conc 35.4 % (30-36); Mean Corpuscular Hemoglobin 30.2 PG (26-34); Mean Corpuscular Volume 85.2 fL (80-100); Monocytes Absolute Auto 500 /uL (0-900); Monocytes Percent Auto 7.3 % (3-14); Neutrophils Absolute Auto 3800 /uL (1500-7000); Neutrophils Percent Auto 61.2 % (50-75); Platelet Count 255 X10^3/uL (150-400); Red Blood Cell Count 4.39 X10^6/uL (4.0-5.2); Red Cell Distribution Width 13.1 % (11.6-14.8); White Blood Cell Count 6.2 X10^3/uL (4.5-11.0)
[2024-08-16 20:54] LABS: INR 0.9 (0.9-1.3); Prothrombin Time 10.7 SECONDS (9.4-12.5)
[2024-08-16 20:57] LABS: PTT Partial Thromboplastin Tim 33 SECONDS (25.1-36.5)
[2024-08-16 20:59] LABS: Alanine Aminotransferase 10 IU/L (<35); Albumin 4.2 g/dL (3.5-5.0); Albumin Globulin Ratio 1.4 (1.0-2.8); Alkaline Phosphatase 45 U/L (38-126); Aspartate Aminotransferase 18 IU/L (14-36); BUN Creatinine Ratio 18.1 (6-22); Bilirubin Total 0.2 mg/dL (0.2-1.3); Blood Urea Nitrogen 17 mg/dL (7-17); Calcium 9.2 mg/dL (8.4-10.2); Carbon Dioxide 26 mmol/L (22-32); Chloride 106 mmol/L (98-107); Creatine Kinase 65 U/L (30-135); Estimated Glomerular Filt Rate > 60 mL/min (>60); Globulin 2.9 g/dL (1.7-4.1); Glucose 70 mg/dL (70-100); HEMOLYSIS < 15 (0-50); Lipase 226 U/L (23-300); Magnesium 1.9 mg/dL (1.6-2.3); Potassium 3.5 mmol/L (3.4-5.1); Sodium 138 mmol/L (137-145); Total Protein 7.1 g/dL (6.3-8.2)
[2024-08-16 21:10] LABS: NT-proBNP (BNP-Adult 18+) 90 pg/mL (<125); Troponin I < 0.012 ng/mL (0.01-0.034)
[2024-08-16 23:05] LABS: Troponin I < 0.012 ng/mL (0.01-0.034)
[2024-08-17] VITALS: BP 96/58; PULSE 62; RESP 17; O2SAT 97
--- NOTE | 2024-08-17 00:05 | ED.CHESTPAIN ---
HPI - Chest Pain General Chief Complaint: Chest Pain Stated Complaint: chest pain, dizziness, numbness in lt arm Time Seen by Provider: 08/17/24 00:05 Source: patient, RN notes reviewed and old records reviewed Mode of arrival: Ambulatory Limitations: no limitations History of Present Illness HPI narrative: 33-year-old female history of allergic rhinitis reports left chest pain in several points on her left chest that is sort of radiated down towards her flank hip region. She also noticed some numbness tingling in her left and occasionally in her left leg. Symptoms reoccurred this evening or little bit more intense and so she presented to the department. Denies any syncope. Has felt maybe a little short of breath, denies any vomiting had some mild nausea. No cold cough or congestion symptoms. No issues with bowel movements, no reported issues with urination, no new swelling of extremities. Patient states did have some symptoms couple years ago for a brief period of time. They have not been persistent have resolved at this time. Patient does note that is symptoms seem to be happening more when she was taking care of her children and does not lot of lifting and carrying. States no daily prescription medications. Does note her blood pressure tends to run low systolic in the 90s is normal for her. States history of knee scope in the past. No known drug allergies. No tobacco, 1 alcoholic drink every couple days, no recreational drugs or marijuana. No long distance travel or prolonged periods of sitting. Has a copper IUD no other estrogen. Has a grandfather who had cardiac issues but no other reported cardiac, embolic or vascular history reported. Patient is accompanied by her significant other. Related Data Home Medications Medication Instructions Recorded Confirmed loratadine 10 mg tablet (Claritin) 10 mg PO .PRN 04/01/21 05/02/24 prenat.vits,bradley,ffc-ulxh-ocato 1 tab PO DAILY 04/01/21 05/02/24 Allergies Allergy/AdvReac Type Severity Reaction Status Date / Time cat dander Allergy Intermediate Itchy Verified 05/02/24 08:32 throat, runny nose Review of Systems Review of Systems ROS Unobtainable: All systems reviewed & are unremarkable except as noted in HPI and below Patient History Medical History Chlamydia (~2019) Allergic rhinitis Surgical History S/P arthroscopic surgery of right knee (~2007) History of root canal procedure (~2020) [place] teeth extracted (01/15/11) Family History Father Healthy adult Mother Twin , mate liveborn Hyperlipidemia Grandfather Diabetes mellitus Hypertension Myocardial infarction Heart disease H/O heart bypass surgery Grandmother Cancer Lung cancer Smoker Grandfather Prostate cancer Grandmother Dementia Family/Other Twin , mate liveborn Sister Premature Social History marital status: number of children: 1 household members: spouse lives independently: Yes caregiver/support person: Yes housing: house pets and animals: No education level: master's degree ([employer] Master's : online full-time [employer]) 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, 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[employer]) current occupational exposures/hazards: No wing/anabaptism: Religious special wing needs: No travel history: recent (Domestic only) seatbelt use: always helmet use: Yes water heater temp set < 120 deg: Yes working smoke detector in home: Yes fire extinguisher in home: Yes carbon monox detector in home: Yes firearms in home: Yes do you feel safe at home: Yes Smoking Status: Never smoker second hand exposure: No alcohol intake: former (2-3/week when not ) substance use type: does not use during the past year weight has: other (Gave 10 months ago) well-balanced diet: daily or most days daily servings fruits/ve or more times/day caffeine: Yes (Decaf while , usually 1 cup coffee/day when not ) Type(s) of exercise: walking frequency: daily Smoking Status: Never smoker Exam Narrative Exam Narrative: GENERAL: Alert and oriented x three, well-appearing female in mild distress. HEENT: Head normocephalic, atraumatic, EOMI, pupils reactive, face symmetric, moist mucous membranes NECK: Supple, full range of motion CARDIOVASCULAR: Regular rate and rhythm without murmurs, rubs or gallops. No JVD. No edema bilateral lower extremities. 2+ pulses bilateral lower extremities. RESPIRATORY: Breath sounds equal bilaterally, no wheezes rales or rhonchi. No tachypnea or accessory muscle use. ABDOMEN: Soft, nontender. Normoactive bowel sounds all 4 quadrants. No guarding or rebound, rigidity, no mass, no bruit or pulsatile mass. : No CVA tenderness EXTREMITIES: Normal range of motion, no clubbing or edema. Neurovascularly intact NEUROLOGICAL: Cranial nerves II through XII grossly intact. Moving all extremities SKIN: Warm, dry, no petechiae, no rashes or lesions. Initial Vital Signs Initial Vital Signs: Vital Signs Temperature 98.5 F 08/16/24 20:16 Pulse Rate 66 08/16/24 20:16 Respiratory Rate 17 08/16/24 20:16 Blood Pressure 128/67 08/16/24 20:16 Pulse Oximetry 98 08/16/24 20:16 Oxygen Delivery Method Room Air 08/16/24 20:16 Scores HEART Score Heart Score history: Moderately Suspicious Heart Score EKG: Non-Specific repolarization disturbance Heart Score Age: < 45 years old Heart Score risk factors: No known risk factors Heart Score troponin: < or = to normal limit Heart Score Total: 2 Course Orders Ordered: ED Orders 08/16/24 20:23 XR chest 1V Stat EKG-12 Lead Stat 08/16/24 20:35 Complete Blood Count AUTO DIFF Stat Comprehensive Metabolic Panel Stat Lipase Stat Magnesium Stat NT-proBNP (BNP-Adult 18+) Stat PTT Partial Thromboplastin Lorenzo Stat Prothrombin Time INR Stat Troponin & CK Cardiac Panel Stat 08/16/24 22:36 Troponin I Stat Discontinued Medications Aspirin (Aspirin 81 Mg Chew Tab) 324 mg PO NOW ONE Stop: 08/16/24 20:23 Vital Signs Vital signs: Vital Signs - 8 hr 08/16/24 21:25 08/16/24 21:26 08/16/24 21:26 Pulse Rate 59 L 57 L Respiratory Rate 16 16 Blood Pressure 99/56 L Pulse Oximetry 100 100 Oxygen Delivery Method 08/16/24 21:30 08/16/24 21:30 08/16/24 22:00 Pulse Rate 61 67 Respiratory Rate 14 18 Blood Pressure 100/61 Pulse Oximetry 100 99 Oxygen Delivery Method Room Air 08/16/24 22:00 08/16/24 22:30 08/16/24 22:30 Pulse Rate 64 Respiratory Rate 17 Blood Pressure 99/55 L 93/55 L Pulse Oximetry 97 Oxygen Delivery Method 08/16/24 23:00 08/16/24 23:30 08/16/24 23:30 Pulse Rate 60 61 Respiratory Rate 15 16 Blood Pressure 90/57 L Pulse Oximetry 97 97 Oxygen Delivery Method 08/17/24 00:00 08/17/24 00:00 Pulse Rate 62 Respiratory Rate 17 Blood Pressure 96/58 L Pulse Oximetry 97 Oxygen Delivery Method Room Air MDM - Chest Pain Lab Data 08/16/24 20:35 08/16/24 20:35 Labs: Lab Results 08/16/24 08/16/24 Range/Units 20:35 22:36 WBC 6.2 (4.5-11.0) X10^3/uL RBC 4.39 (4.0-5.2) X10^6/uL Hgb 13.2 (12.0-16.0) g/dL Hct 37.4 (36-46) % MCV 85.2 (80-100) fL MCH 30.2 (26-34) PG MCHC 35.4 (30-36) % RDW 13.1 (11.6-14.8) % Plt Count 255 (150-400) X10^3/uL Neut % (Auto) 61.2 (50-75) % Lymph % (Auto) 29.4 (25-40) % [place] % (Auto) 7.3 (3-14) % Eos % (Auto) 1.6 L (2-4) % Baso % (Auto) 0.5 (0-2) % Neut # (Auto) 3800 (8894-1926) /uL Lymph # (Auto) 1800 (3932-6135) /uL [place] # (Auto) 500 (0-900) /uL Eos # (Auto) 100 (0-450) /uL Baso # (Auto) 0 (0-100) /uL PT 10.7 (9.4-12.5) SECONDS INR 0.9 (0.9-1.3) APTT 33 (25.1-36.5) SECONDS Sodium 138 (137-145) mmol/L Potassium 3.5 (3.4-5.1) mmol/L Chloride 106 (98-107) mmol/L Carbon Dioxide 26 (22-32) mmol/L BUN 17 (7-17) mg/dL Creatinine 0.94 (0.52-1.04) mg/dL Estimated GFR > 60 (>60) mL/min BUN/Creatinine Ratio 18.1 (6-22) Glucose 70 (70-100) mg/dL Calcium 9.2 (8.4-10.2) mg/dL Magnesium 1.9 (1.6-2.3) mg/dL Total Bilirubin 0.2 (0.2-1.3) mg/dL AST 18 (14-36) IU/L ALT 10 (<35) IU/L Alkaline Phosphatase 45 (38-126) U/L Total Creatine Kinase 65 (30-135) U/L Troponin I < 0.012 < 0.012 (0.01-0.034) ng/mL NT-Pro-B Natriuret Pep 90 (<125) pg/mL Total Protein 7.1 (6.3-8.2) g/dL Albumin 4.2 (3.5-5.0) g/dL Globulin 2.9 (1.7-4.1) g/dL Albumin/Globulin Ratio 1.4 (1.0-2.8) Lipase 226 (23-300) U/L Imaging Data Chest x-ray: Radiologist's Impression: Close Chest X-Ray (Signed) Danny Carson - 08/16/24 Telemetry Strips 05/11/23 Ultrasound (Signed) Danny Carson - 12/14/22 DI Result 09/30/22 [place] [address] XRay Report Signed Patient: Kelsy Burrell MR#: [id number] : 1990 Acct:[id number] Age/Sex: 33 / F Date of Service: 08/16/24 Loc: ED Accession Number: [id number] Procedure: XR chest 1V Ordering Provider: Claudine Chacko D.O. PROCEDURE: XR CHEST 1V INDICATIONS: chest pain TECHNIQUE: One view of the chest was acquired. COMPARISON: None. FINDINGS: Surgical changes and devices: None. Lungs and pleura: Lungs are clear. No pleural effusions or pneumothorax. Mediastinum: Mediastinal contours appear normal. Heart size is normal. Bones and chest wall: No suspicious bony lesions. Overlying soft tissues appear unremarkable. IMPRESSION: No acute cardiopulmonary pathology. Dictated by: Danny Carson M.D. on 08/16/2024 at 20:45 Approved by: Danny Carson M.D. on 08/16/2024 at 20:46 ECG Data Attestation: I personally reviewed and interpreted this ECG as follows: Prior ECG tracings: not available for review Interpretation: Sinus rhythm with sinus arrhythmia rate of 62 RI 144 QRS of 98 QTC of 424, nonspecific change. No priors for comparison. MDM Narrative Medical decision making narrative: Patient's vitals, patient's systolic is in the 90s. She notes this is normal for her Labs show white count of 6.2 hemoglobin of 13.2 platelets of 255 coags are negative, electrolytes, BUN renal function are appropriate glucose is 70, LFTs are negative magnesium is 1.9, troponins less than 0.012 and repeat troponin is less than 0.012 with a lipase of 226. Chest x-ray shows no acute change EKG shows sinus rhythm with sinus arrhythmia. 33-year-old female with complaint of left-sided chest pain but describes it as several points, did radiate down towards her hip. Also had some numbness tingling of arm and her leg slightly at 1 point. Patient notes seems to be more when she was taking care of her children some are small. Patient states asymptomatic this point, suspicion for cardiac source is low, reviewed embolic or even vascular issues with patient did discuss CT angio but patient defers. I do suspect this maybe more musculoskeletal but discussed she should return if new or worsening symptoms. Patient feels comfortable this plan and discharged home. Discharge Plan Departure Patient Disposition: Home Clinical Impression: Atypical chest pain Instructions: DI for Atypical Chest Pain Activity Restrictions/Additional Instructions: Follow up with primary care. Please return for new or worsening symptoms, increased or new chest pain, increased shortness of breath, passing out, new swelling, new numbness tingling or weakness or other new or concerning changes. Prescriptions: No Action loratadine [Claritin] 10 mg tablet 10 mg PO .PRN prenat.vits,bradley,nit-jilc-jwqot Tablet 1 tab PO DAILY Referrals: Conor Patel MD [Primary Care Provider] - Stand Alone Forms: Patient Portal/API
== END 2024-08-17 00:28 | disposition home or self-care (01) ==
PROVIDERS: Emergency Provider Emergency Medicine; PCP Family Medicine
DX: R07.89 Other chest pain (principal); R20.0 Anesthesia of skin; I49.8 Other specified cardiac arrhythmias; R11.0 Nausea; Z97.5 Presence of (intrauterine) contraceptive device
CPT/HCPCS: 71045; 80053; 82550; 83690; 83735; 83880; 84484; 85025; 85610; 85730; 93005; 99283; 99284

== ENCOUNTER → 2025-01-07 07:50 | Outpatient (CLI) | payer OTHER, SELFPAY ==
[2025-01-07 08:46] LABS: COVID-19 CEPHEID 4-PLEX PCR Negative (Negative); Influenza A - CEPHEID Flu A POSITIVE (NEGATIVE); Influenza B - CEPHEID Flu B NEGATIVE (NEGATIVE); Respiratory Syncytial Virus Negative (Negative)
== END ==
PROVIDERS: PCP Family Medicine; Visit Provider Nurse Practitioner Family
DX: J02.9 Acute pharyngitis, unspecified (principal); R05.1 Acute cough
CPT/HCPCS: 0241U; 87070

== ENCOUNTER → 2025-01-07 08:05 | Outpatient (CLI) | payer OTHER, SELFPAY ==
--- NOTE | 2025-01-07 08:06 | DI.RAD.S_ITS ---
PROCEDURE: XR CHEST 2V INDICATIONS: Cough TECHNIQUE: 2 views of the chest were acquired. COMPARISON: [facility], CR, XR CHEST 1V, 08/16/2024, 20:36. FINDINGS: Surgical changes and devices: None. Lungs and pleura: Lungs are clear. No pleural effusions or pneumothorax. Mediastinum: Mediastinal contours are normal. Heart size is normal. Bones and chest wall: No suspicious bony abnormalities. Soft tissues appear unremarkable. IMPRESSION: No acute pulmonary process. Dictated by: Radha Brewer M.D. on 01/07/2025 at 9:02 Approved by: Radha Brewer M.D. on 01/07/2025 at 9:02
== END ==
PROVIDERS: PCP Family Medicine; Referring Provider Nurse Practitioner Family; Visit Provider Nurse Practitioner Family
DX: R05.1 Acute cough (principal); J02.9 Acute pharyngitis, unspecified
CPT/HCPCS: 0241U; 71046; 87070

== ENCOUNTER → 2025-08-07 07:21 | Outpatient (CLI) | payer OTHER, SELFPAY ==
[2025-08-07 08:41] LABS: Add Manual Diff / Slide Review NO; Hematocrit 37.8 % (36-46); Hemoglobin 13.2 g/dL (12.0-16.0); Lymphocytes Absolute Auto 1500 /uL (1100-4500); Mean Corpuscular HGB Conc 35.0 % (30-36); Mean Corpuscular Hemoglobin 30.2 PG (26-34); Mean Corpuscular Volume 86.4 fL (80-100); Platelet Count 289 X10^3/uL (150-400)
[2025-08-07 08:50] LABS: Hemoglobin A1C% w Est Avg Glu 4.9 % (4.0-6.0)
[2025-08-07 08:52] LABS: Alanine Aminotransferase 9 IU/L (<35); Albumin 4.2 g/dL (3.5-5.0); Albumin Globulin Ratio 1.6 (1.0-2.8); Alkaline Phosphatase 55 U/L (38-126); Blood Urea Nitrogen 13 mg/dL (7-17); Calcium 9.1 mg/dL (8.4-10.2); Carbon Dioxide 26 mmol/L (22-32); Chloride 105 mmol/L (98-107); Cholesterol 223 mg/dL (140-199); Estimated Glomerular Filt Rate > 60 mL/min (>60); Globulin 2.7 g/dL (1.7-4.1); Glucose 91 mg/dL (70-99); HDL Cholesterol 45 mg/dL (40-60); HEMOLYSIS < 15 (0-50); Potassium 4.0 mmol/L (3.4-5.1); Sodium 138 mmol/L (137-145); Total Protein 6.9 g/dL (6.3-8.2); Triglycerides 103 mg/dL (35-150)
== END ==
PROVIDERS: PCP Family Medicine; Referring Provider Family Medicine; Visit Provider Family Medicine
DX: D64.9 Anemia, unspecified (principal); Z13.9 Encounter for screening, unspecified; E66.9 Obesity, unspecified; Z13.220 Encounter for screening for lipoid disorders
CPT/HCPCS: 36415; 80053; 80061; 83036; 85025

== ENCOUNTER → 2025-10-22 09:14 | Outpatient (CLI) | payer OTHER, SELFPAY ==
--- NOTE | 2025-10-22 09:15 | DI.RAD.S_ITS ---
PROCEDURE: XR CHEST 2V INDICATIONS: Aspirate liquid 3 days ago TECHNIQUE: 2 views of the chest were acquired. COMPARISON: [facility], CR, XR CHEST 2V, 01/07/2025, 8:02. FINDINGS: Surgical changes and devices: None. Lungs and pleura: Lungs are clear. No pleural effusions or pneumothorax. Mediastinum: Mediastinal contours are normal. Heart size is normal. Bones and chest wall: No suspicious bony abnormalities. Soft tissues appear unremarkable. IMPRESSION: No acute cardiopulmonary abnormality is seen. Dictated by: Tristan Bautista M.D. on 10/22/2025 at 10:03 Approved by: Tristan Bautista M.D. on 10/22/2025 at 10:03
== END ==
PROVIDERS: PCP Family Medicine; Referring Provider Nurse Practitioner Family; Visit Provider Nurse Practitioner Family
DX: R05.9 Cough, unspecified (principal)
CPT/HCPCS: 71046